=== PATIENT | female | born 1935 | race Caucasian/White ===

== ENCOUNTER → 2017-12-05 | Outpatient (CLI) | payer OTHER, BC ==
[~2017-12-05] MED LIST: ENDOCET 5-3251 EACH PO; FLEXERIL5 MG PO; LOSARTAN-HCTZ1 EAC1 PO; MOBIC7.5 MG PO; PROTONIX40 MG PO; SINGULAIR10 MG PO; SYNTHROID125 MCG PO
== END | disposition home or self-care (01) ==
LOC: NUC 08:27
DX: K91.1 Postgastric surgery syndromes (principal); R11.0 Nausea; R63.4 Abnormal weight loss
CPT/HCPCS: 78264; A9541